=== PATIENT | female | born 1970 | race African-American/Black ===

== ENCOUNTER 2016-03-27 15:03 | Inpatient (IN) | payer BC ==
[2016-03-27 16:27] VITALS: BMI 26.6
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
[2016-03-27] MEDS ORDERED: ACETAMINOPHEN 325 MG TABLET (FP) PO PRN (17:54)
[2016-03-27] MEDS ORDERED: MAGNESIUM CITRATE 300 ML BOTTLE PO PRN (17:54)
[2016-03-27] MEDS ORDERED: P-EPHED 60MG/TRIPROLIDI 2.5MG TABLET PO PRN (17:54)
[2016-03-27] MEDS ORDERED: hydrOXYzine PAMOATE 50 MG CAPSULE (FP) PO PRN (17:54)
[2016-03-27] MEDS ORDERED: MENTHOL/PHENOL 1 EACH UD MM PRN (17:54)
[2016-03-27] MEDS ORDERED: MAGNESIUM HYDROX 2400MG/30ML ORAL SUSPENSION 30 ML CUP PO PRN (17:54)
[2016-03-27] MEDS ORDERED: MAG HYDROX/AL HYDROX/SIMETH 30 ML UNIT-DOSE CUP PO PRN (17:54)
[2016-03-27] MEDS ORDERED: LOPERAMIDE HCL 2 MG CAPSULE PO PRN (17:54)
[2016-03-27] MEDS ORDERED: guaiFENesin/D-METHORPHAN HB 10 ML UNIT-DOSE CUPS PO PRN (17:54)
[2016-03-27] MEDS ORDERED: IBUPROFEN 400 MG TABLET (FP) PO PRN (17:54)
[2016-03-27] MEDS ORDERED: diphenhydrAMINE HCL 50 MG CAPSULE PO PRN (17:54)
[2016-03-27] MEDS ORDERED: diazePAM 5 MG TABLET PO PRN (17:58)
[2016-03-27] MEDS ORDERED: ALBUTEROL SO4 2.5/IPRATROPIUM 0.5 INH SOL 3 ML VIAL.NEB. NEB PRN (18:02)
[2016-03-27] MEDS ORDERED: ALBUTEROL SO4 6.7 GM HFA INHALER IH PRN (18:02)
[2016-03-27] MEDS ORDERED: cloNIDine HCL 0.1 MG TABLET PO PRN (18:03)
[2016-03-27] MEDS ORDERED: COLLOIDAL OATMEAL 1 BAR EACH TP PRN (18:15)
[2016-03-27] MEDS ORDERED: diazePAM 5 MG TABLET PO ONE ×2 (18:15→18:16)
[2016-03-27] MEDS: amLODIPine BESYLATE 10 MG TABLET (FP) PO SCH (19:19)
[2016-03-27 21:55] LABS: URINE APPEARANCE SLCLOUDY; URINE BILIRUBIN NEGATIVE (NEGATIVE); URINE COLOR YELLOW; URINE GLUCOSE (UA) NEGATIVE (NEGATIVE); URINE KETONE TRACE (NEGATIVE); URINE NITRITE NEGATIVE (NEGATIVE); URINE UROBILINOGEN NEGATIVE E.U./dl (0.2-1.0)
[2016-03-27 21:56] LABS: URINE BLOOD 1+ (NEGATIVE); URINE LEUK ESTERASE 1+ (NEGATIVE); URINE PROTEIN 3+ (NEGATIVE)
[2016-03-27 22:05] LABS: URINE BACTERIA RARE /hpf (NONE SEEN); URINE MUCUS MODERATE; URINE RBC 22 /hpf (0-3); URINE WBC 15 /hpf (3-5)
[2016-03-27] MEDS: THIAMINE HCL 100 MG TABLET (FP) PO SCH (22:09)
[2016-03-27] MEDS: diazePAM 5 MG TABLET PO SCH (22:09)
[2016-03-27] MEDS: BUDESONIDE/FORMETEROL FUMARATE 80/4.5 mcg INHALER IH SCH (22:10)
[2016-03-27] MEDS: MINERAL OIL/PETROLAT/WATER TOPICAL CREAM 113 GM JAR TP SCH (22:55)
[2016-03-28] MEDS: diazePAM 5 MG TABLET PO SCH ×3 (07:00→22:10)
--- NOTE | 2016-03-28 08:19 | CONSULT ---
[facility] Psychiatric Consult - Data Date of interview: 03/28/16 Admission source: [facility] Identifying data: This is 46 years old female with Schizoaffective disorder history intoxicated with: Alcohol, Crack and Cannabis Substance Abuse History: - Smoking Cessation. Smoking history: Former smoker. Have you smoked in the past 12 months: No. Aproximately how many cigarettes per day: 0. Cigars Per Day: 0. Hx Chewing Tobacco Use: No. Initiated information on smoking cessation: No. - Substance & Tx. History. Hx Alcohol Use: Yes. Hx Substance Use: No. Substance Use Type: Alcohol. Hx Substance Use Treatment: Yes. - Substances Abused. Alcohol. Route: Oral. Frequency : 3-6 times per week. Amount used: 12pk beers. Age of first use: 15. Date of Last Use: 03/26/16. crack cocaine. Route: Smoking. Frequency: Daily. Amount used: $100. Age of first use: 26. Date of Last Use: 03/27/16 Medical History: Asthma, HTN, LBP, Chronic Bronchitis Psychiatric History: Patient reports to carry Schizoaffective diisorder, reports most recent psychiatric hospitalization on about more then 5 years ago, reports currently taking : Seroquel 200mg po [id number] Physical/Sexual Abuse/Trauma History: Unclear Additional Comment: Seroquel 100mg po bid Mental Status Exam - Mental Status Exam Alert and Oriented to: Person Cognitive Function: Fair Patient Appearance: Unkempt Mood: Suspicious, Withdrawn Affect: Constricted Patient Behavior: Cooperative Speech Pattern: Appropriate Voice Loudness: Normal Thought Process: Circumstantial Thought Disorder: Being Controlled Hallucinations: Denies Suicidal Ideation: Denies Homicidal Ideation: Denies Insight/Judgement: Fair Sleep: Difficulty falling asleep Appetite: Weight gain Muscle strength/Tone: Normal Gait/Station: Normal Additional Comments: Seroquel 100mg po bid Psychiatric Findings - Problem List ([place] 1, 2,3) (1) Alcohol dependence with uncomplicated withdrawal Current Visit: Yes Status: Acute (2) Schizoaffective disorder, bipolar type Current Visit: Yes Status: Suspected Comment: SEROQUEL (3) Alcohol dependence Current Visit: No Status: Acute (4) Cannabis dependence Current Visit: No Status: Acute (5) Cocaine dependence Current Visit: No Status: Acute (6) Drug-induced mood disorder Current Visit: No Status: Acute - Initial Treatment Plan Initial Treatment Plan: Seroquel 100mg po bid
[2016-03-28 09:40] LABS: MCH 30.3 pg (25.7-33.7); MCHC 32.7 g/dl (32.0-36.0); MEAN CELL VOLUME 92.8 fl (80-96); MEAN PLT VOLUME 7.9 fl (7.5-11.1); PLATELET COUNT 228 K/MM3 (134-434); WHITE BLOOD COUNT 6.7 K/mm3 (4.0-10.0)
[2016-03-28] MEDS ORDERED: diazePAM 5 MG TABLET PO SCH (10:00)
[2016-03-28] MEDS: CYCLOBENZAPRINE HCL 10 MG TABLET (FP) PO PRN (10:16)
[2016-03-28] MEDS: diazePAM 5 MG TABLET PO PRN (10:16)
[2016-03-28] MEDS: amLODIPine BESYLATE 10 MG TABLET (FP) PO SCH (10:16)
[2016-03-28] MEDS: PRENATAL VITAMINS W/ FOLIC ACID TABLET (FP) PO SCH (10:16)
[2016-03-28 10:17] LABS: ALBUMIN 3.6 g/dl (3.4-5.0); BILIRUBIN,TOTAL 0.2 mg/dL (0.2-1.0); CALCIUM 9.3 mg/dL (8.5-10.1); CREATININE 1.4 mg/dL (0.55-1.02); TOT PROT 6.5 g/dl (6.4-8.2)
[2016-03-28] MEDS: BUDESONIDE/FORMETEROL FUMARATE 80/4.5 mcg INHALER IH SCH ×2 (10:17→22:11)
--- NOTE | 2016-03-28 10:39 | EKG ---
Test Reason : Blood Pressure : / mmHG Vent. Rate : 082 BPM Atrial Rate : 082 BPM P-R Int : 114 ms QRS Dur : 094 ms QT Int : 368 ms P-R-T Axes : 058 002 040 degrees QTc Int : 429 ms POOR DATA QUALITY, INTERPRETATION MAY BE ADVERSELY AFFECTED NORMAL SINUS RHYTHM POSSIBLE LEFT ATRIAL ENLARGEMENT BORDERLINE ECG NO PREVIOUS ECGS AVAILABLE Confirmed by MARISELA LÓPEZ, NEGRITO ([id number]) on 03/28/2016 10:39:16 AM Referred By: Justin Lamar Confirmed By:NEGRITO ANTONIO MD
--- NOTE | 2016-03-28 11:59 | PN ---
S CIWA - CIWA Score Nausea/Vomitin-No Nausea/No Vomiting Muscle Tremors: 4-Moderate,w/Arms Extend Anxiety: 4-Mod. Anxious/Guarded Agitation: 4-Moderately Restless Paroxysmal Sweats: 3 Orientation: 0-Oriented Tacttile Disturbances: 0-None Auditory Disturbances: 0-None Visual Disturbances: 0-None Headache: 0-None Present CIWA-Ar Total Score: 15 BHS Progress Note (SOAP) Subjective: sweats anxious irritable interrupted sleep Objective: 03/28/16 11:57 Vital Signs Temperature 98.2 F 03/28/16 09:54 Pulse Rate 116 H 03/28/16 09:54 Respiratory Rate 18 03/28/16 09:54 Blood Pressure 145/90 03/28/16 09:54 O2 Sat by Pulse Oximetry (%) Laboratory Tests 03/27/16 03/28/16 03/28/16 20:30 06:30 06:30 WBC 6.7 RBC 4.44 Hgb 13.5 Hct 41.2 MCV 92.8 MCHC 32.7 RDW 15.0 Plt Count 228 MPV 7.9 Sodium 144 Potassium 3.8 Chloride 106 Carbon Dioxide 27 Anion Gap 11 BUN 22 H Creatinine 1.4 H D Creat Clearance w eGFR 40.31 Random Glucose 104 Calcium 9.3 Total Bilirubin 0.2 AST 23 D ALT 28 D Alkaline Phosphatase 81 D Total Protein 6.5 Albumin 3.6 Urine Color Yellow Urine Appearance Slcloudy Urine pH 5.0 Ur Specific [place] 1.023 Urine Protein 3+ H Urine Glucose (UA) Negative Urine Ketones Trace H Urine Blood 1+ H Urine Nitrite Negative Urine Bilirubin Negative Urine Urobilinogen Negative Ur Leukocyte Esterase 1+ H Urine RBC 22 Urine WBC 15 Ur Epithelial Cells Few Urine Bacteria Rare Urine Mucus Moderate awake/alert ambulating no acute distress Assessment: 03/28/16 11:58 withdrawal sx Plan: continue detox increase fluids clonidine 0.1mg bid
[2016-03-28] MEDS: cloNIDine HCL 0.1 MG TABLET PO SCH ×2 (14:23→22:10)
[2016-03-28] MEDS: THIAMINE HCL 100 MG TABLET (FP) PO SCH (22:10)
[2016-03-28] MEDS: QUEtiapine FUMARATE 200 MG TABLET PO SCH (22:10)
[2016-03-28] MEDS: MINERAL OIL/PETROLAT/WATER TOPICAL CREAM 113 GM JAR TP SCH (22:55)
[2016-03-29] MEDS ORDERED: diazePAM 5 MG TABLET PO SCH (10:00)
[2016-03-29] MEDS: PRENATAL VITAMINS W/ FOLIC ACID TABLET (FP) PO SCH (10:12)
[2016-03-29] MEDS: amLODIPine BESYLATE 10 MG TABLET (FP) PO SCH (10:13)
[2016-03-29] MEDS: cloNIDine HCL 0.1 MG TABLET PO SCH ×2 (10:13→22:22)
[2016-03-29] MEDS: diazePAM 5 MG TABLET PO SCH ×2 (10:13→22:22)
[2016-03-29] MEDS: CYCLOBENZAPRINE HCL 10 MG TABLET (FP) PO PRN (10:13)
[2016-03-29] MEDS: BUDESONIDE/FORMETEROL FUMARATE 80/4.5 mcg INHALER IH SCH ×2 (10:13→22:22)
--- NOTE | 2016-03-29 10:40 | PN ---
S CIWA - CIWA Score Nausea/Vomitin Muscle Tremors: 3 Anxiety: 3 Agitation: 2 Paroxysmal Sweats: 1-Minimal Palms Moist Orientation: 0-Oriented Tacttile Disturbances: 1-Very Mild Itch/Numbness Auditory Disturbances: 1-Very Mild Visual Disturbances: 1-Very Mild Sensitivity Headache: 2-Mild CIWA-Ar Total Score: 17 BHS Progress Note (SOAP) Subjective: ALERT,IRRITABLE,ANXIOUS,INTERRUPTED SLEEP,TREMOR Objective: 03/29/16 10:37 Vital Signs Temperature 97.7 F 03/29/16 10:15 Pulse Rate 104 H 03/29/16 10:15 Respiratory Rate 16 03/29/16 10:15 Blood Pressure 137/96 03/29/16 10:15 O2 Sat by Pulse Oximetry (%) Laboratory Last Values WBC 6.7 K/mm3 (4.0-10.0) 03/28/16 06:30 RBC 4.44 M/mm3 (3.60-5.2) 03/28/16 06:30 Hgb 13.5 GM/dL (10.7-15.3) 03/28/16 06:30 Hct 41.2 % (32.4-45.2) 03/28/16 06:30 MCV 92.8 fl (80-96) 03/28/16 06:30 MCHC 32.7 g/dl (32.0-36.0) 03/28/16 06:30 RDW 15.0 % (11.6-15.6) 03/28/16 06:30 Plt Count 228 K/MM3 (134-434) 03/28/16 06:30 MPV 7.9 fl (7.5-11.1) 03/28/16 06:30 Sodium 144 mmol/L (136-145) 03/28/16 06:30 Potassium 3.8 mmol/L (3.5-5.1) 03/28/16 06:30 Chloride 106 mmol/L (98-107) 03/28/16 06:30 Carbon Dioxide 27 mmol/L (21-32) 03/28/16 06:30 Anion Gap 11 (8-16) 03/28/16 06:30 BUN 22 mg/dL (7-18) H 03/28/16 06:30 Creatinine 1.4 mg/dL (0.55-1.02) H D 02/09/17 06:30 Creat Clearance w eGFR 40.31 (>60) 03/28/16 06:30 Random Glucose 104 mg/dL (74-106) 03/28/16 06:30 Calcium 9.3 mg/dL (8.5-10.1) 03/28/16 06:30 Total Bilirubin 0.2 mg/dL (0.2-1.0) 03/28/16 06:30 AST 23 U/L (15-37) D 03/28/16 06:30 ALT 28 U/L (12-78) D 03/28/16 06:30 Alkaline Phosphatase 81 U/L (45-117) D 03/28/16 06:30 Total Protein 6.5 g/dl (6.4-8.2) 03/28/16 06:30 Albumin 3.6 g/dl (3.4-5.0) 03/28/16 06:30 Urine Color Yellow 03/27/16 20:30 Urine Appearance Slcloudy 03/27/16 20:30 Urine pH 5.0 (5.0-8.0) 03/27/16 20:30 Ur Specific [place] 1.023 (1.001-1.035) 03/27/16 20:30 Urine Protein 3+ (NEGATIVE) H 03/27/16 20:30 Urine Glucose (UA) Negative (NEGATIVE) 03/27/16 20:30 Urine Ketones Trace (NEGATIVE) H 03/27/16 20:30 Urine Blood 1+ (NEGATIVE) H 03/27/16 20:30 Urine Nitrite Negative (NEGATIVE) 03/27/16 20:30 Urine Bilirubin Negative (NEGATIVE) 03/27/16 20:30 Urine Urobilinogen Negative E.U./dl (0.2-1.0) 03/27/16 20:30 Ur Leukocyte Esterase 1+ (NEGATIVE) H 03/27/16 20:30 Urine RBC 22 /hpf (0-3) 03/27/16 20:30 Urine WBC 15 /hpf (3-5) 03/27/16 20:30 Ur Epithelial Cells Few /hpf (FEW) 03/27/16 20:30 Urine Bacteria Rare /hpf (NONE SEEN) 03/27/16 20:30 Urine Mucus Moderate 03/27/16 20:30 RPR Titer Nonreactive (NONREACTIVE) 03/28/16 06:30 Assessment: 03/29/16 10:38 WITHDRAWAL SYMPTOM Plan: CONTINUE DETOX,HISTORY OF OLD INJURY OF RIGHT ANKLE USE FERNANDO BANDAGE IN RIGHT ANKLE IN DAYTIME,REPEAT UA
[2016-03-29 16:25] LABS: URINE APPEARANCE SLCLOUDY; URINE BILIRUBIN NEGATIVE (NEGATIVE); URINE BLOOD NEGATIVE (NEGATIVE); URINE COLOR LTYELLOW; URINE GLUCOSE (UA) NEGATIVE (NEGATIVE); URINE KETONE NEGATIVE (NEGATIVE); URINE NITRITE NEGATIVE (NEGATIVE); URINE PROTEIN NEGATIVE (NEGATIVE); URINE UROBILINOGEN NEGATIVE E.U./dl (0.2-1.0)
[2016-03-29 16:26] LABS: URINE LEUK ESTERASE TRACE (NEGATIVE)
[2016-03-29 16:28] LABS: URINE MUCUS RARE; URINE RBC 3 /hpf (0-3); URINE WBC 6 /hpf (3-5)
[2016-03-29] MEDS: diazePAM 5 MG TABLET PO PRN (18:44)
[2016-03-29] MEDS ORDERED: ALBUTEROL SO4 6.7 GM HFA INHALER IH ONE (19:32)
[2016-03-29] MEDS: THIAMINE HCL 100 MG TABLET (FP) PO SCH (22:22)
[2016-03-29] MEDS: QUEtiapine FUMARATE 200 MG TABLET PO SCH (22:22)
[2016-03-29] MEDS: MINERAL OIL/PETROLAT/WATER TOPICAL CREAM 113 GM JAR TP SCH (22:25)
--- NOTE | 2016-03-30 08:44 | PN ---
S Progress Note (SOAP) Subjective: ALERT,NO COMPLAINT Objective: 03/30/16 08:42 Vital Signs Temperature 97.9 F 03/30/16 06:00 Pulse Rate 113 H 03/30/16 06:00 Respiratory Rate 18 03/30/16 06:00 Blood Pressure 129/96 03/30/16 06:00 O2 Sat by Pulse Oximetry (%) Assessment: 03/30/16 08:42 DETOX COMPLETED,NO WITHDRAWAL SYMPTOM Plan: DISCHARGE TODAY,FOLLOW UP WITH AFTER CARE PROGRAM ARRANGEMENT AND PMD FOR MEDICAL PROBLEM
--- NOTE | 2016-03-30 08:47 | PN ---
S Progress Note (SOAP) Subjective: ALERT,NO COMPLAINT Objective: 03/30/16 08:45 Vital Signs Temperature 97.9 F 03/30/16 06:00 Pulse Rate 113 H 03/30/16 06:00 Respiratory Rate 18 03/30/16 06:00 Blood Pressure 129/96 03/30/16 06:00 O2 Sat by Pulse Oximetry (%) Assessment: 03/30/16 08:45 PATIENT IS STABLE FOR DISCHARGE 03/30/16 08:46 Plan: DISCHARGE TODAY,FOLLOW UP WITH AFTER CARE PROGRAM ARRANGEMENT TO SEE PMD FOR MEDICAL PROBLEM
--- NOTE | 2016-03-30 08:52 | DS ---
[facility] Detox Discharge Summary Admission Date: 03/27/16 Discharge Date: 03/30/16 - History Present History: Alcohol Dependence, Cocaine Dependence Additional Comments: PATIENT IS STABLE FOR DISCHARGE TODAY,FOLLOW UP WITH PMD FOR MEDICAL PROBLEM PATIENT HAS ALL MEDICATION AT HOME Pertinent Past History: ASTHMA HYPERTENSION SCHIZOAFFECTIVE DISORDER - Physical Exam Results Vital Signs: Vital Signs Temperature 97.9 F 03/30/16 06:00 Pulse Rate 113 H 03/30/16 06:00 Respiratory Rate 18 03/30/16 06:00 Blood Pressure 129/96 03/30/16 06:00 O2 Sat by Pulse Oximetry (%) Pertinent Admission Physical Exam Findings: WITHDRAWAL SYMPTOM - Treatment Hospital Course: Detox Protocol Followed, Detoxed Safely, Responded well, Discharged Condition Good Patient has Accepted a Rehab Referral to: DECLINED - Medication Discharge Medications: Ambulatory Orders Quetiapine Fumarate [Seroquel -] 100 mg PO HS 03/27/16 Salmeterol/Fluticasone [Advair 100Mcg/50Mcg -] 1 inh PO BID 03/27/16 Quetiapine Fumarate [Seroquel -] 200 mg PO HS #30 tab 03/28/16 - AMA Did Patient Leave Against Medical Advice: No
[2016-03-30 09:34] VITALS: BP 151/106; PULSE 105; TEMP 97
[2016-03-31] MEDS ORDERED: diazePAM 5 MG TABLET PO SCH (10:00)
== END 2016-03-30 09:19 | disposition home or self-care (01) | DRG 774 ==
LOC: YASAS 15:03 → Y6N 18:14
PROVIDERS: ADMIT Internal Medicine; ATTEND Internal Medicine
PROC: HZ2ZZZZ Detoxification Services for Substance Abuse Treatment (ICD-10-PCS; principal; 2016-03-30)
DX: F10.230 Alcohol dependence with withdrawal, uncomplicated (principal); F14.20 Cocaine dependence, uncomplicated; F12.20 Cannabis dependence, uncomplicated; F25.0 Schizoaffective disorder, bipolar type; F19.24 Other psychoactive substance dependence with psychoactive substance-induced mood disorder; I10 Essential (primary) hypertension; J45.42 Moderate persistent asthma with status asthmaticus; J41.0 Simple chronic bronchitis
CPT/HCPCS: 36415; 80053; 81003; 81015; 85027; 86593; 93005; 93010; 94640